=== PATIENT | male | born 1995 | race Caucasian/White ===

== ENCOUNTER → 2018-04-17 15:55 | Outpatient (CLI) | payer OTHER, SELFPAY ==
--- NOTE | 2018-04-17 16:03 | RAD_ITS ---
STUDY: X-RAY - LUMBAR SPINE REASON FOR EXAM: Male, 22 years old. lower back pain x several years TECHNIQUE: 3 view(s) of the lumbar spine were obtained. COMPARISON: None FINDINGS: Normal lumbar lordosis. There is no substantial scoliosis. There is a normal alignment of the vertebrae. Normal vertebral bodies and endplates. Normal disc space heights. The soft tissue structures are unremarkable. RAD/Lumbar Spine 2 or 3 Views IMPRESSION: Normal x-ray examination of the lumbar spine. Electronically Signed: Rene Marie MD at 21:37 EDT , Service support ,
== END ==
PROVIDERS: Referring Provider Anesthesiology Pain Medicine; Visit Provider Anesthesiology Pain Medicine
DX: M54.5 Low back pain (principal)
CPT/HCPCS: 72100

== ENCOUNTER 2018-06-21 08:00 | Outpatient (RCR) | payer OTHER, SELFPAY ==
--- NOTE | 2018-06-03 15:39 | HP.PTEVAL ---
Patient's Visit Information BLANKA ESTRELLA is a 22 year old M referred to Physical Therapy by Nette Adkins with a diagnosis of Back Pain. Date of Evaluation: 06/03/18 Physical Therapist: Luz Elena Gloria - Visit Plan Frequency: 3x /Week Duration: 3 Weeks Plan: Focus on Core s/s - Subjective Findings: Patient reports that he hurt his back in high school- after games his low back would hurt and travel up. For awhile it stopped- during practice soccer he was drilled in the back and has been hurting since. Hit in January or . Is still playing soccer-indoor up at [employer]. Pain hurts when he is done playing soccer and a lot of running- even with stretching it does not seem to make a difference. Pain is located in between the shoulder blades but after soccer it hurts in the low back in the middle. No pain that radiates down the legs- no neck pain. No N/T. Describes as dull and achy- constant pains. Has had x-rays of the spine- negative. Agg: soccer Worst: 10/10 when he was hit in the back Eases: muscle relaxer and anti-inflammatory. Best: 0/10. 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 Pain comes and goes- mostly its tolerable. No MRI. No chiropractor or massage therapist. No loss or change in bowel/bladder. Sleep: not disturbed- belly/back/side sleeper. PMHx: ADHD Meds: none - Objective Posture: FH, RS- can correct with verbal cues but does not maintain. Gait: no deviation noted- good arm swing and trunk rotation. SLS: 30 sec without LOB- no increased muscle activation or hip drop. HR/TR: able without UE A. ROM: Lumbar- flexion: hands to mid smith (reports Hamstring/calf tightness), Extn: WNL, SB and rotation: WNL in all planes- reports discomfort with rotation, Hip/Knee/Ankle: WNL. Palpation: not tender along paraspinals but reports discomfort with PA glides to the spinous process L3-L5 and Thoracic spine. Strength: Ankle: 5/5, Knee: 5/5, Hip: 4+/5 throughout Core: fair. Special Test: slump: negative, SLR: negative, Dural signs: negative. Flex: HS: moderate, Gastroc: moderate - Goals Goal 1:: Patient will be I with HEP and progression Goal Time Frame: 4-6 Weeks Goal 2:: Patient will maintain proper posture t/o tx session to demo increased core s/s. Goal Time Frame: 4-6 Weeks Goal 3:: Patient will report 0/10 pain while playing soccer Goal Time Frame: 4-6 Weeks - Rehabilitation Potential Physical Therapy Diagnosis: Patient presents with hypomobility- he has decreased ROM, strength and muscular endurance leading to poor posture and increased pain with ADL's and recreational activities. Rehabilitation Potential: Good - Anticipated Interventions Therapeutic Exercise to Include: Strength training, Endurance training, Body mechanics, Postural training, Passive ROM, Active ROM, Dynamic Lumbar Stabilization For the Purpose of:: To improve muscle performance and motor function TENS: Yes Cryotherapy (ice pack, ice massage): Yes Thermo therapy (hot pack): Yes Thank you for the opportunity to evaluate your patient. For Medicare and Medicare HMO plans, please review the plan of care and approve it. It will need to be FAXED BACK to us at [phone] for Medicare purposes. For Medicare only, by signing this I certify the plan of care. Please let me know if there are questions or concerns regarding this plan of care. Physician Signature: Date:
--- NOTE | 2018-06-21 08:24 | HP.PTDCSUM ---
HP - PT D/C Summary It has been my pleasure to treat BLANKA ESTRELLA under orders from Nette Adkins MD, for the diagnosis of Back Pain for a total of 7 visit(s). Discharge Date: Please see the following information for a summary of their discharge status. - Subjective Subjective: Generally the pain is much better-he was able to play 3 soccer games with very little pain. Is not working with [employer] any more so he is not lifting heavy packages anymore now that Maria M is over. - Overall Improvement % Improvement: 70 - Objective Objective/Function: Posture:good throughout sitting in hardback chair and unsupported with no VC's Gait: no deviation noted- good arm swing and trunk rotation. SLS: 30 sec without LOB- no increased muscle activation or hip drop. HR/TR: able without UE A. ROM: Lumbar- flexion: hands to toes, Extn: WNL, SB and rotation: WNL in all planes- no reports of discomfort, Hip/Knee/Ankle: WNL. Palpation: not tender along paraspinals. Strength: Ankle: 5/5, Knee: 5/5, Hip: 5/5 throughout Core: fair plus. Special Test: slump: negative, SLR: negative, Dural signs: negative. Flex: HS: moderate, Gastroc: moderate - Goals Goal 1:: Patient will be I with HEP and progression Goal Progress: Goal Met Goal 2:: Patient will maintain proper posture t/o tx session to demo increased core s/s. Goal Progress: Goal Met Goal 3:: Patient will report 0/10 pain while playing soccer Goal Progress: Goal Met - Plan Plan: Discharge to I HEP - D/C Information If there are questions or concerns regarding this patient's physical therapy, please feel free to call me at [phone]. Thank you for the referral of this patient. Sincerely, MYCHAL OharaT
== END 2018-06-21 19:00 | disposition home or self-care (01) ==
LOC: PT 08:00
PROVIDERS: Referring Provider Anesthesiology Pain Medicine; Visit Provider Anesthesiology Pain Medicine
DX: M54.9 Dorsalgia, unspecified (principal)
CPT/HCPCS: 97110; 97161; 97164

== ENCOUNTER → 2018-09-09 09:39 | Outpatient (CLI) | payer OTHER, SELFPAY ==
--- NOTE | 2018-09-09 09:45 | MRI_ITS ---
STUDY: MRI LUMBAR SPINE WITHOUT CONTRAST REASON FOR EXAM: Male, 22 years old. Low back pain TECHNIQUE: Standardized fat and water weighted pulse sequences were obtained in the sagittal and axial planes. COMPARISON: Lumbar spine x-ray 04/17/2018 FINDINGS: There is multilevel Schmorl's nodes. T12-L1: Normal disc height, hydration and morphology. Normal bilateral facet joints. Normal central canal and bilateral lateral recesses. Normal bilateral intervertebral neural foramina. Normal lumbar lordosis. There is no substantial scoliosis. Normal conus medullaris that terminates at the L1 level L1-2: There is mild disc bulge and disc desiccation. There is a small subchondral cyst along the L1 inferior endplate.. Normal bilateral facet joints. Normal central canal and bilateral lateral recesses. Normal bilateral intervertebral neural foramina. L2-3: There is disc desiccation without significant loss of disc height. Normal bilateral facet joints. Normal central canal and bilateral lateral recesses. Normal bilateral intervertebral neural foramina. L3-4: Normal disc height, hydration and morphology. Normal bilateral facet joints. Normal central canal and bilateral lateral recesses. Normal bilateral intervertebral neural foramina. L4-5: Normal disc height, hydration and morphology. Normal bilateral facet joints. Normal central canal and bilateral lateral recesses. Normal bilateral intervertebral neural foramina. L5-S1: Normal disc height, hydration and morphology. Normal bilateral facet joints. Normal central canal and bilateral lateral recesses. Normal bilateral intervertebral neural foramina. Normal visualized sacral ala. Normal visualized paraspinous soft tissue structures. MRI/Spine Lumbar (Routine) IMPRESSION: There are mild degenerative changes at L1-L2 and L2-L3. No central canal or foraminal narrowing. Electronically Signed: Carina Harper, at 15:45 EDT Tel , Service support ,
== END ==
PROVIDERS: Family Provider Student in an Organized Health Care Education/Training Program; PCP Student in an Organized Health Care Education/Training Program; Referring Provider Anesthesiology Pain Medicine; Visit Provider Anesthesiology Pain Medicine
DX: M54.9 Dorsalgia, unspecified (principal); M79.606 Pain in leg, unspecified
CPT/HCPCS: 72148